=== PATIENT | male | born 1950 | race Caucasian/White ===

== ENCOUNTER 2020-07-18 14:56 | Emergency (ER) | payer MEDICARE ==
[~2020-07-18] VITALS: Ht 172.7 cm; Wt 90.9 kg
[2020-07-18] MEDS ORDERED: HYDROcodone/APAP 7.5/325MG 1 TAB TABLET PO ONE (16:45)
--- NOTE | 2020-07-18 17:25 | RAD ---
EXAM: Left hand, 3 views. HISTORY: Crush injury. COMPARISON: None. FINDINGS: 3 views of the left hand are obtained. There are displaced fractures involving the angela of the fourth and fifth distal phalanges. 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 No radiodense foreign body is seen. There are lacerations involving the soft tissues of the fourth and fifth distal phalanges. There is overlying bandage material. IMPRESSION: Mildly displaced fractures involving the angela of the fourth and fifth distal phalanges, with associated soft tissue lacerations. Electronically signed by: Keely Urbina MD (07/18/2020 5:22 PM) [id number]
[2020-07-18] MEDS ORDERED: LIDOCAINE 1% Multi-Dose 20 ML VIAL. INJ ONE (18:45)
[2020-07-18] MEDS ORDERED: CEPHALEXIN 250 MG CAPSULE. PO SCH (19:30)
[2020-07-18] MEDS ORDERED: DIPH,PERTUSS(ACELL),TET VAC/PF 0.5 ML SYRINGE. VAX IM ONE (19:30)
[2020-07-18] MEDS ORDERED: SMZ/TMP 800/160MG TABLET. PO ONE (19:30)
[2020-07-18] MEDS ORDERED: AMOX1TAB61 PO (19:52)
[2020-07-18] MEDS ORDERED: HYDR-3164 PO ×2 (19:52→20:02)
--- NOTE | 2020-07-18 19:57 | PHYS DOC ---
Past Medical History Past Medical History: High Cholesterol, Hypertension, Other Additional Past Medical Histor: GOUT Past Surgical History: No Surgical History Smoking Status: Current Every Day Smoker Additional Information: 2 CIGARS DAILY Alcohol Use: Occasionally General Adult EDM: Chief Complaint: FINGER INJURY HPI: HPI: Patient is a 70 year old [f__sex] who presents with [] Review of Systems: Review of Systems: Constitutional: Denies fever or chills. [] Eyes: Denies change in visual acuity. [] HENT: Denies nasal congestion or sore throat. [] Respiratory: Denies cough or shortness of breath. [] Cardiovascular: Denies chest pain or edema. [] GI: Denies abdominal pain, nausea, vomiting, bloody stools or diarrhea. [] : Denies dysuria. [] Musculoskeletal: Denies back pain or joint pain. [] Integument: Denies rash. [] Neurologic: Denies headache, focal weakness or sensory changes. [] Endocrine: Denies polyuria or polydipsia. [] Lymphatic: Denies swollen glands. [] Psychiatric: Denies depression or anxiety. [] Heart Score: Risk Factors: Risk Factors: DM, Current or recent (<one month) smoker, HTN, HLP, family history of CAD, obesity. Risk Scores: Score 0 - 3: 2.5% MACE over next 6 weeks - Discharge Home Score 4 - 6: 20.3% MACE over next 6 weeks - Admit for Clinical Observation Score 7 - 10: 72.7% MACE over next 6 weeks - Early Invasive Strategies Current Medications: Current Medications Medications (Trade) Dose Ordered Sig/[facility] Start Time Stop Time Status Last Admin Dose Admin Acetaminophen/ Hydrocodone Bitart (Lortab 7.5/325) 1 tab 1X ONCE 07/18/20 16:45 07/18/20 16:46 DC 07/18/20 16:45 1 TAB Cephalexin HCl (Keflex) 500 mg 1X 07/18/20 19:30 Diphtheria/ Tetanus/Acell Pertussis (ADACEL TDap SYRINGE) 0.5 ml ONCE ONCE 07/18/20 19:30 07/18/20 19:38 DC Lidocaine HCl (Lidocaine 1% 20ml Vial) 20 ml 1X ONCE 07/18/20 18:45 07/18/20 18:46 DC 07/18/20 18:40 20 ML Trimethoprim/ Sulfamethoxazole (Bactrim Ds) 1 tab 1X ONCE 07/18/20 19:30 07/18/20 19:38 DC Allergies: Allergies: Allergies Coded Allergies Type Severity Reaction Last Updated Verified No Known Drug Allergies 07/18/20 No Physical Exam: PE: Constitutional: Well developed, well nourished, no acute distress, non-toxic appearance. [] HENT: Normocephalic, atraumatic, bilateral external ears normal, oropharynx moist, no oral exudates, nose normal. [] Eyes: PERRLA, EOMI, conjunctiva normal, no discharge. [] Neck: Normal range of motion, no tenderness, supple, no stridor. [] Cardiovascular:Heart rate regular rhythm, no murmur [] Lungs & Thorax: Bilateral breath sounds clear to auscultation [] Abdomen: Bowel sounds normal, soft, no tenderness, no masses, no pulsatile masses. [] Skin: Warm, dry, no erythema, no rash. [] Back: No tenderness, no CVA tenderness. [] Extremities: No tenderness, no cyanosis, no clubbing, ROM intact, no edema. [] Neurologic: Alert and oriented X 3, normal motor function, normal sensory function, no focal deficits noted. [] Psychologic: Affect normal, judgement normal, mood normal. [] Current Patient Data: Vital Signs: Vital Signs Date Time Temp Pulse Resp B/P (MAP) Pulse Ox O2 Delivery O2 Flow Rate FiO2 07/18/20 17:45 16 96 Room Air 07/18/20 16:18 98.2 68 196/94 (128) 98.2 EKG: EKG: [] Radiology/Procedures: Radiology/Procedures: []IMAGING REPORT Signed PATIENT: ADWOA ROBERTS ACCOUNT: [id number] : 1950 LOCATION: ER AGE: 70 SEX: M EXAM STATUS: REG ER ORD. PHYSICIAN: JOSE LUIS SAUNDERS DO REASON: crush injuryt 13 PROCEDURE: HAND LEFT 3V EXAM: Left hand, 3 views. HISTORY: Crush injury. COMPARISON: None. FINDINGS: 3 views of the left hand are obtained. There are displaced fractures involving the angela of the fourth and fifth distal phalanges. 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 No radiodense foreign body is seen. There are lacerations involving the soft tissues of the fourth and fifth distal phalanges. There is overlying bandage material. IMPRESSION: Mildly displaced fractures involving the angela of the fourth and fifth distal phalanges, with associated soft tissue lacerations. Electronically signed by: Keely Ramirez MD (07/18/2020 5:22 PM) [id number] DICTATED and SIGNED BY: KEELY RAMIREZ MD DATE: 07/18/20 172 Course & Med Decision Making: Course & Med Decision Making Pertinent Labs and Imaging studies reviewed. (See chart for details) Strict ED return precautions were given for []. Encouraged urgent outpatient follow-up with PMD and [specialist]. Life-threatening processes were considered but are low suspicion at this time, given history and physical exam. Pt was educated on all prescription medications and adverse effects. All patient's questions were answered and pt was stable at time of discharge. I spoken with the patient and her caregivers. I explained the patient's condition, diagnoses and treatment plan based on the information available to me at this time. I have answered the patient and her caregiver's questions and addressed any concerns. The patient and her caregivers have a good understanding of patient's diagnosis, condition and treatment plan as can be expected at this point. Vital signs have been stable. Patient's condition is stable and appropriate for discharge from the emergency department. Patient will pursue further outpatient evaluation with primary care physician or other designated or consulting physician as outlined in the discharge instructions. The patient and/or caregivers are agreeable to this plan of care and follow-up instructions have been explained in detail. The patient and/or caregivers have received these instructions in written form and have expressed an understanding of the discharge instructions. The patient and/or caregivers are aware that any significant change of condition or worsening of symptoms should prompt immediate return to this or the closest emergency department or call to 911. Shira Disclaimer: Shira Disclaimer: This electronic medical record was generated, in whole or in part, using a voice recognition dictation system. Departure Departure Impression: Primary Impression: Phalanx, distal fracture of finger Additional Impressions: Subungual hematoma of finger of left hand Traumatic avulsion of nail plate of finger Disposition: 01 DC HOME SELF CARE/HOMELESS Condition: STABLE Referrals: GLENYS STOUT MD (PCP) Patient Instructions: Finger Fracture (Phalangeal)-[facility], [facility], Adult, Subungual Hematoma Additional Instructions: [facility] hand surgery - Dr. Mackey call [phone] ASK FOR "ORTHOPEDIC AFTER HOURS CLINIC" from 4-7p -Clinic located [place] [address] EMERGENCY DEPARTMENT GENERAL DISCHARGE INSTRUCTIONS Thank you for coming to [facility] Emergency Department (ED) today and trusting us with you care. We trust that you had a positive experience in our Emergency Department. If you wish to speak to the department management, you may call the Director at [phone]. YOUR FOLLOW UP INSTRUCTIONS ARE FOLLOWS: 1. Do you have a private Doctor? If you do not have a private doctor, please ask for a resource list of physicians or clinics that may be able to assist you with follow up care. 2. The Emergency Physicain has interpreted your x-rays. The X-Ray specialist will also review them. If there is a change in the findings, you will be notified in 48 hours when at all possible. 3. A lab test or culture has been done, your results will be reviewed and you will be notified if you need a change in treatment. ADDITIONAL INSTRUCTIONS AND INFORMATION: 1. Your care today has been supervised by a physician who is specially trained in emergency care. Many problems require more than one evaluation for a complete diagnosis and treatment. We recommend that you schedule your follow up appointment as recommended to ensure complete treatment of you illness or injury. If you are unable to obtain follow up care and continue to have a problem, or if your condition worsens, we recommend that you return to the ED. 2. We are not able to safely determine your condition over the phone nor are we able to give sound medical advice over the phone. For these safety reasons, if you call for medical advice we will ask you to come to the ED for further evaluation. 3. If you have any questions regarding these discharge instructions please call the ED at [phone]. SAFETY INFORMATION: In the interest of safety, wellness, and injury prevention; we encourage you to wear your sealbelt, if you smoke; quite smoking, and we encourage family to use a protective helmet for bicycling and other sporting events that present an increased risk for head injury. IF YOUR SYMPTOMS WORSEN OR NEW SYMPTOMS DEVELOP, OR YOU HAVE CONCERNS ABOUT YOUR CONDITION; OR IF YOUR CONDITION WORSENS WHILE YOU ARE WAITING FOR YOUR FOLLOW UP APPOINTMENT; EITHER CONTACT YOUR PRIMARY CARE DOCTOR, THE PHYSICIAN WHOSE NAME AND NUMBER YOU WERE GIVEN, OR RETURN TO THE ED IMMEDIATELY. Scripts Hydrocodone/Apap 5-325 (NORCO 5-325 TABLET) 1 Each Tablet 1 TAB PO PRN Q6HRS PRN for PAIN for 5 Days, #20 TAB 0 Refills Prov: JOSE LUIS SAUNDERS DO 07/18/20 Amoxicillin/Potassium Clav (AUGMENTIN 875-125 TABLET) 1 Each Tablet 1 TAB PO Q12HR for 10 Days, #20 TAB Prov: JOSE LUIS SAUNDERS DO 07/18/20 JOSE LUIS SAUNDERS DO Jul 18, 2020 19:57
[2020-07-18] MEDS ORDERED: NEOMY/BACITR/POLYMYXIN OINT PACKET. TP ONE (20:00)
[2020-07-18 20:29] VITALS: BP 216/105
== END 2020-07-18 20:31 | disposition home or self-care (01) ==
LOC: ER 14:56
DX: S62.635A Displaced fracture of distal phalanx of left ring finger, initial encounter for closed fracture (principal); S61.305A Unspecified open wound of left ring finger with damage to nail, initial encounter; E78.00 Pure hypercholesterolemia, unspecified; I10 Essential (primary) hypertension; F17.210 Nicotine dependence, cigarettes, uncomplicated; Z98.890 Other specified postprocedural states; X58.XXXA Exposure to other specified factors, initial encounter; Y93.89 Activity, other specified; Y92.89 Other specified places as the place of occurrence of the external cause; Y99.8 Other external cause status
CPT/HCPCS: 11730; 73130; 90471; 90715; 99284; J3490